=== PATIENT | female | born 1945 | race Caucasian/White ===

== ENCOUNTER 2017-08-18 00:59 | Inpatient (IN) | payer OTHER, MEDICARE ==
[~2017-08-18] VITALS: Ht 147.3 cm; Wt 63.5 kg
[2017-08-18 03:12] LABS: BASOPHIL % 1.3 % (0-2); PLATELET COUNT 231 x10^3mcL (130-400); RED CELL DISTRIBUTION WIDTH 12.6 % (11.5-14.5)
[2017-08-18 03:39] LABS: ALKALINE PHOSPHATASE 88 U/L (46-116); ALT/SGPT 14 U/L (14-59); AST/SGOT 15 U/L (15-37); BILIRUBIN TOTAL 0.1 mg/dL (0.20-1.00); CALCIUM 8.6 mg/dL (8.5-10.1); CARBON DIOXIDE 35.9 mmol/L (21-32); CHLORIDE SERUM 104 mmol/L (98-107); CREATININE SERUM 0.7 mg/dL (0.6-1.0); POTASSIUM SERUM 3.6 mmol/L (3.5-5.1); SODIUM SERUM 144 mmol/L (136-145); TOTAL PROTEIN, SERUM 7.3 g/dL (6.4-8.2)
[2017-08-18 03:40] LABS: ALBUMIN 3.3 g/dL (3.4-5.0)
[2017-08-18 03:41] LABS: GLUCOSE SERUM 48 mg/dL (74-106)
[2017-08-18] MEDS ORDERED: [UNRECOGNIZED DRUG - CODE] (05:09)
[2017-08-18] MEDS ORDERED: PAROXETINE30 M1 PO (05:09)
[2017-08-18] MEDS ORDERED: LACTULOSE10 GM/152 (05:09)
[2017-08-18] MEDS ORDERED: GAS RELIEF EXT125 MG (05:10)
[2017-08-18] MEDS ORDERED: HALOPERIDOL10 MG (05:10)
[2017-08-18] MEDS ORDERED: NOVOLIN 70/3010 ML (05:10)
[2017-08-18] MEDS ORDERED: VERAPAMIL HCL240 MG (05:10)
[2017-08-18 07:02] LABS: CHOLESTEROL/HDL RATIO 2.3; MAGNESIUM 2.3 mg/dL (1.8-2.4); PHOSPHOROUS 3.4 mg/dL (2.5-4.9)
[2017-08-18 07:14] LABS: FREE T4 0.92 ng/dL (0.76-1.46); FREE THYROXINE INDEX 2.6 ug/dL (1.4-4.5); T4(THYROXINE) 7.9 ug/dL (4.7-13.3)
[2017-08-18 07:46] LABS: T3 TOTAL 0.69 ng/mL
[2017-08-18 07:52] VITALS: BP 226/76
[2017-08-18 09:00] VITALS: BP 176/72
[2017-08-18 09:04] VITALS: BP 226/76
[2017-08-18 12:48] LABS: CARBON DIOXIDE 32.9 mmol/L (21-32); CHLORIDE SERUM 102 mmol/L (98-107); CREATININE SERUM 0.6 mg/dL (0.6-1.0); GLUCOSE SERUM 210 mg/dL (74-106); SODIUM SERUM 141 mmol/L (136-145)
[2017-08-18 12:54] LABS: POTASSIUM SERUM 2.9 mmol/L (3.5-5.1)
[2017-08-18 14:33] VITALS: BP 152/53
[2017-08-18 18:07] VITALS: BP 159/56
[2017-08-18 18:46] LABS: CALCIUM 8.2 mg/dL (8.5-10.1); CHLORIDE SERUM 106 mmol/L (98-107); CREATININE SERUM 0.7 mg/dL (0.6-1.0); GLUCOSE SERUM 118 mg/dL (74-106); POTASSIUM SERUM 3.9 mmol/L (3.5-5.1); SODIUM SERUM 141 mmol/L (136-145)
[2017-08-18 21:52] VITALS: BP 165/58
[2017-08-19 05:14] VITALS: BP 167/65
[2017-08-19 07:41] LABS: CALCIUM 8.6 mg/dL (8.5-10.1); CHLORIDE SERUM 104 mmol/L (98-107); CREATININE SERUM 0.8 mg/dL (0.6-1.0); GLUCOSE SERUM 144 mg/dL (74-106); MAGNESIUM 2.1 mg/dL (1.8-2.4); PHOSPHOROUS 2.7 mg/dL (2.5-4.9); POTASSIUM SERUM 3.6 mmol/L (3.5-5.1); SODIUM SERUM 141 mmol/L (136-145)
[2017-08-19 08:07] LABS: BASOPHIL % 0.7 % (0-2); PLATELET COUNT 222 x10^3mcL (130-400); RED CELL DISTRIBUTION WIDTH 13.2 % (11.5-14.5)
[2017-08-19 09:14] VITALS: BP 187/67
[2017-08-19 10:30] VITALS: BP 120/56
[2017-08-19 17:59] VITALS: BP 158/58
[2017-08-19 18:00] VITALS: BP 181/55
[2017-08-19 21:29] VITALS: BP 163/49
[2017-08-20] VITALS (7 sets, daily range): BP systolic 100–195; BP diastolic 34–59
[2017-08-20 06:37] LABS: BASOPHIL % 0.6 % (0-2); PLATELET COUNT 200 x10^3mcL (130-400); RED CELL DISTRIBUTION WIDTH 12.6 % (11.5-14.5)
[2017-08-20 06:56] LABS: AMYLASE 37 U/L (25-115); CALCIUM 8.2 mg/dL (8.5-10.1); CARBON DIOXIDE 29.8 mmol/L (21-32); CHLORIDE SERUM 103 mmol/L (98-107); CREATININE SERUM 0.7 mg/dL (0.6-1.0); GLUCOSE SERUM 187 mg/dL (74-106); LIPASE 79 IU/L (73-393); MAGNESIUM 1.9 mg/dL (1.8-2.4); PHOSPHOROUS 2.7 mg/dL (2.5-4.9); POTASSIUM SERUM 3.5 mmol/L (3.5-5.1); SODIUM SERUM 139 mmol/L (136-145)
[2017-08-21 05:40] VITALS: BP 156/53
[2017-08-21] MEDS ORDERED: LIPI10 PO (05:40)
[2017-08-21] MEDS ORDERED: METOPROLOL TART25 M1 PO (05:41)
[2017-08-21] MEDS ORDERED: ZES20 PO (05:41)
[2017-08-21 06:42] LABS: microscopic required? YES; urine erythrocyte NEGATIVE (NEGATIVE)
[2017-08-21 06:54] LABS: CALCIUM 8.6 mg/dL (8.5-10.1); CARBON DIOXIDE 32.5 mmol/L (21-32); CHLORIDE SERUM 102 mmol/L (98-107); CREATININE SERUM 0.9 mg/dL (0.6-1.0); GLUCOSE SERUM 189 mg/dL (74-106); MAGNESIUM 1.8 mg/dL (1.8-2.4); PHOSPHOROUS 2.4 mg/dL (2.5-4.9); POTASSIUM SERUM 3.7 mmol/L (3.5-5.1); SODIUM SERUM 140 mmol/L (136-145)
[2017-08-21 07:05] LABS: AMPHETAMINE QUAL UR NONE DETECTED (NEG <=1000)
[2017-08-21 07:27] LABS: BASOPHIL % 0.6 % (0-2); PLATELET COUNT 203 x10^3mcL (130-400); RED CELL DISTRIBUTION WIDTH 13.2 % (11.5-14.5)
[2017-08-21 08:08] VITALS: BP 198/65
[2017-08-21] MEDS ORDERED: MAC100 PO (08:32)
[2017-08-21] MEDS ORDERED: LAC PO (08:33)
[2017-08-21 09:42] VITALS: BP 169/58
[2017-08-21 10:00] VITALS: BP 169/58
[2017-08-21 14:40] VITALS: BP 102/61
== END 2017-08-21 15:49 | DRG 77 ==
LOC: ED 00:59 → DU 04:48
PROVIDERS: Emergency Medicine Emergency Medical Services; ADMIT Family Medicine Sports Medicine
DX: I67.4 Hypertensive encephalopathy (principal); K85.90 Acute pancreatitis without necrosis or infection, unspecified; E44.1 Mild protein-calorie malnutrition; E11.649 Type 2 diabetes mellitus with hypoglycemia without coma; E11.65 Type 2 diabetes mellitus with hyperglycemia; E87.6 Hypokalemia; I11.9 Hypertensive heart disease without heart failure; I08.0 Rheumatic disorders of both mitral and aortic valves; F03.90 Unspecified dementia, unspecified severity, without behavioral disturbance, psychotic disturbance, mood disturbance, and anxiety; E11.51 Type 2 diabetes mellitus with diabetic peripheral angiopathy without gangrene; K75.81 Nonalcoholic steatohepatitis (NASH); E78.5 Hyperlipidemia, unspecified; E66.3 Overweight; Z68.29 Body mass index [BMI] 29.0-29.9, adult; Z79.4 Long term (current) use of insulin; Z87.891 Personal history of nicotine dependence; Z86.73 Personal history of transient ischemic attack (TIA), and cerebral infarction without residual deficits
CPT/HCPCS: 82962; 83880; 84439; 90658; 90732; 92610-GN; J0360; J1644; J2405; J3480; J3490; J7030; J7070; Q0092

== ENCOUNTER 2017-08-22 17:04 | Inpatient (IN) | payer OTHER, MEDICARE ==
[~2017-08-22] VITALS: Ht 147.3 cm; Wt 58.3 kg
[~2017-08-22 17:04] MED LIST: GAS RELIEF EXT125 MG; HALOPERIDOL10 MG; LAC PO; LACTULOSE10 GM/152; LIPI10 PO; MAC100 PO; METOPROLOL TART25 M1 PO; NOVOLIN 70/3010 ML; PAROXETINE30 M1 PO; VERAPAMIL HCL240 MG; ZES20 PO; [UNRECOGNIZED DRUG - CODE]
[2017-08-22 18:57] LABS: BASOPHIL % 0.2 % (0-2); PLATELET COUNT 223 x10^3mcL (130-400); RED CELL DISTRIBUTION WIDTH 13.6 % (11.5-14.5)
[2017-08-22 19:04] LABS: CALCIUM 8.6 mg/dL (8.5-10.1); CARBON DIOXIDE 32.4 mmol/L (21-32); CHLORIDE SERUM 101 mmol/L (98-107); CREATININE SERUM 0.9 mg/dL (0.6-1.0); GLUCOSE SERUM 92 mg/dL (74-106); POTASSIUM SERUM 3.4 mmol/L (3.5-5.1); SODIUM SERUM 140 mmol/L (136-145)
[2017-08-22 19:08] LABS: ALBUMIN 3.4 g/dL (3.4-5.0); ALKALINE PHOSPHATASE 93 U/L (46-116); ALT/SGPT 19 U/L (14-59); AST/SGOT 25 U/L (15-37); BILIRUBIN TOTAL 0.2 mg/dL (0.20-1.00); TOTAL PROTEIN, SERUM 7.8 g/dL (6.4-8.2)
[2017-08-22 19:09] LABS: CHOLESTEROL 201 mg/dL (<200); HDL CHOLESTEROL 89 mg/dL (40-60)
[2017-08-22 19:45] LABS: microscopic required? YES; urine erythrocyte NEGATIVE (NEGATIVE)
[2017-08-22 22:06] VITALS: BP 169/50
[2017-08-22 23:48] LABS: PHOSPHOROUS 3.6 mg/dL (2.5-4.9)
[2017-08-22 23:49] LABS: CHOLESTEROL/HDL RATIO 2.3
[2017-08-23 00:36] LABS: FREE T4 1.09 ng/dL (0.76-1.46); FREE THYROXINE INDEX 3.1 ug/dL (1.4-4.5); T4(THYROXINE) 9.3 ug/dL (4.7-13.3)
[2017-08-23 02:55] LABS: T3 TOTAL 0.73 ng/mL
[2017-08-23 05:26] VITALS: BP 138/57
[2017-08-23 06:39] LABS: BASOPHIL % 0.6 % (0-2); PLATELET COUNT 184 x10^3mcL (130-400)
[2017-08-23 06:45] LABS: CALCIUM 8.3 mg/dL (8.5-10.1); CHLORIDE SERUM 105 mmol/L (98-107); CREATININE SERUM 0.8 mg/dL (0.6-1.0); GLUCOSE SERUM 89 mg/dL (74-106); MAGNESIUM 1.9 mg/dL (1.8-2.4); PHOSPHOROUS 2.9 mg/dL (2.5-4.9); POTASSIUM SERUM 3.1 mmol/L (3.5-5.1); SODIUM SERUM 141 mmol/L (136-145)
[2017-08-23 10:05] VITALS: BP 126/54
[2017-08-23 13:35] VITALS: BP 91/34
[2017-08-23 21:43] VITALS: BP 151/48
[2017-08-24 06:48] VITALS: BP 186/56
[2017-08-24 07:03] LABS: BASOPHIL % 0.5 % (0-2); PLATELET COUNT 204 x10^3mcL (130-400); RED CELL DISTRIBUTION WIDTH 13.4 % (11.5-14.5)
[2017-08-24 07:49] LABS: CALCIUM 8.6 mg/dL (8.5-10.1); CHLORIDE SERUM 101 mmol/L (98-107); CREATININE SERUM 0.8 mg/dL (0.6-1.0); GLUCOSE SERUM 211 mg/dL (74-106); MAGNESIUM 1.8 mg/dL (1.8-2.4); POTASSIUM SERUM 3.5 mmol/L (3.5-5.1); SODIUM SERUM 139 mmol/L (136-145)
[2017-08-24 09:10] VITALS: BP 189/61
[2017-08-24 13:24] VITALS: BP 103/43
[2017-08-24 16:44] VITALS: BP 139/47
[2017-08-24 21:36] VITALS: BP 167/53
[2017-08-25] VITALS (8 sets, daily range): BP systolic 113–162; BP diastolic 41–55; Ht 147.3 cm; Wt 58.3 kg
[2017-08-25 06:26] LABS: CALCIUM 8.7 mg/dL (8.5-10.1); CARBON DIOXIDE 32.3 mmol/L (21-32); CHLORIDE SERUM 101 mmol/L (98-107); GLUCOSE SERUM 204 mg/dL (74-106); MAGNESIUM 1.6 mg/dL (1.8-2.4); PHOSPHOROUS 2.6 mg/dL (2.5-4.9); SODIUM SERUM 140 mmol/L (136-145)
[2017-08-25 06:36] LABS: BASOPHIL % 0.6 % (0-2); PLATELET COUNT 197 x10^3mcL (130-400); RED CELL DISTRIBUTION WIDTH 13.2 % (11.5-14.5)
[2017-08-25] MEDS ORDERED: BACTRIM DS1 TAB PO (10:34)
[2017-08-25] MEDS ORDERED: LAC PO (10:46)
[2017-08-25] MEDS ORDERED: METOPROLOL TART25 M1 PO (17:36)
[2017-08-26 01:04] VITALS: BP 164/44
[2017-08-26 05:55] VITALS: BP 110/61
[2017-08-26 09:36] VITALS: BP 175/67
[2017-08-26 11:30] VITALS: BP 173/60
[2017-08-26 13:48] VITALS: BP 186/56
[2017-08-26 14:54] VITALS: BP 152/49
== END 2017-08-26 16:37 | DRG 689 ==
LOC: ED 17:04 → DU 21:20
PROVIDERS: Emergency Medicine; Family Medicine Sports Medicine; ADMIT Student in an Organized Health Care Education/Training Program
DX: N39.0 Urinary tract infection, site not specified (principal); G93.41 Metabolic encephalopathy; I50.43 Acute on chronic combined systolic (congestive) and diastolic (congestive) heart failure; E44.1 Mild protein-calorie malnutrition; D68.69 Other thrombophilia; K56.7 Ileus, unspecified; I42.2 Other hypertrophic cardiomyopathy; E11.649 Type 2 diabetes mellitus with hypoglycemia without coma; E11.51 Type 2 diabetes mellitus with diabetic peripheral angiopathy without gangrene; E11.65 Type 2 diabetes mellitus with hyperglycemia; E87.6 Hypokalemia; E78.00 Pure hypercholesterolemia, unspecified; G30.8 Other Alzheimer's disease; F02.80 Dementia in other diseases classified elsewhere, unspecified severity, without behavioral disturbance, psychotic disturbance, mood disturbance, and anxiety; I11.0 Hypertensive heart disease with heart failure; H11.9 Unspecified disorder of conjunctiva; E83.51 Hypocalcemia; E83.39 Other disorders of phosphorus metabolism; I35.1 Nonrheumatic aortic (valve) insufficiency; I34.0 Nonrheumatic mitral (valve) insufficiency; I37.1 Nonrheumatic pulmonary valve insufficiency; I16.0 Hypertensive urgency; Z68.26 Body mass index [BMI] 26.0-26.9, adult; Z74.01 Bed confinement status; Z79.4 Long term (current) use of insulin; Z86.73 Personal history of transient ischemic attack (TIA), and cerebral infarction without residual deficits
CPT/HCPCS: 82962; 83880; 84439; J0696; J1644; J1815; J3475; J3480; J3490; J7030; J7040; J7042; J7060; J7070; Q0092

== ENCOUNTER 2017-09-13 10:24 | Inpatient (IN) | payer OTHER, MEDICARE ==
[~2017-09-13] VITALS: Ht 152.4 cm; Wt 45.9 kg
[~2017-09-13 10:24] MED LIST changes: +BACTRIM DS1 TAB PO
--- NOTE | 2017-09-13 10:30 | NUR ---
PT BIB AMBULANCE, PT HAS A HX OF DEMENTIA AND FAMILY CALLED 911 FOR INCREASED ALOC TODAY. PT UNABLE TO SPEAK UPON ARRIVAL, WITHDRAWS TO PAIN, AND UNABLE TO FOLLOW COMMANDS. PER MEDIC, FAMILY STATES THAT PT IS MORE ALTERED FOR SELF THAN USUAL. PT ARRIVED WITH BS READING >600 X2. PT PLACED ON CM, EKG DONE. PER MEDIC, PT IS ON HOSPICE AND DNR, UNABLE TO OBTAIN DNR FROM FACILITY AT THIS TIME. NO FAMILY AT BEDSIDE. PT AWAITING MD PUGA.
--- NOTE | 2017-09-13 10:32 | NUR ---
MSE COMPLETED BY DR PASCUAL.
--- NOTE | 2017-09-13 10:43 | NUR ---
XRAY AT BEDSIDE
--- NOTE | 2017-09-13 10:48 | NUR ---
LAB AT BEDSIDE FOR BLOOD DRAW
[2017-09-13] MEDS ORDERED: LAC PO (11:22)
[2017-09-13 11:37] LABS: BASOPHIL % 0.1 % (0-2); PLATELET COUNT 276 x10^3mcL (130-400); RED CELL DISTRIBUTION WIDTH 13.6 % (11.5-14.5)
--- NOTE | 2017-09-13 11:42 | NUR ---
PT TO CT SCAN VIA [facility]
--- NOTE | 2017-09-13 11:42 | NUR ---
SPOKE TO MERY FROM [facility]
[2017-09-13 11:46] LABS: ALBUMIN 4.7 g/dL (3.4-5.0); ALKALINE PHOSPHATASE 156 U/L (46-116); ALT/SGPT 16 U/L (14-59); AST/SGOT 9 U/L (15-37); BILIRUBIN TOTAL 0.9 mg/dL (0.20-1.00); CALCIUM 9.7 mg/dL (8.5-10.1); CARBON DIOXIDE 18.5 mmol/L (21-32); CHLORIDE SERUM 89 mmol/L (98-107); CREATININE SERUM 2.7 mg/dL (0.6-1.0); POTASSIUM SERUM 4.8 mmol/L (3.5-5.1); SODIUM SERUM 134 mmol/L (136-145)
--- NOTE | 2017-09-13 11:54 | NUR ---
PT RETURNED FROM CT, DR PASCUAL AT BEDSIDE FOR FURTHER EVALUATION.
[2017-09-13] MEDS ORDERED: LACTULOSE10 GM/152 PO (11:59)
--- NOTE | 2017-09-13 12:02 | NUR ---
FAMILY AT BEDSIDE
[2017-09-13] MEDS ORDERED: LOVASTATIN20 MG PO (12:03)
[2017-09-13 12:04] LABS: CHOLESTEROL 243 mg/dL (<200); TOTAL PROTEIN, SERUM 9.2 g/dL (6.4-8.2)
[2017-09-13] MEDS ORDERED: METFORMIN500 M1 PO (12:07)
[2017-09-13 12:08] LABS: GLUCOSE SERUM 782 mg/dL (74-106)
[2017-09-13] MEDS ORDERED: LAXATIVE5 M1 PR (12:11)
[2017-09-13] MEDS ORDERED: LORAZEPAM0.5 MG PO (12:13)
[2017-09-13] MEDS ORDERED: HALOPERIDOL L2 MG/ML SL (12:13)
[2017-09-13] MEDS ORDERED: PROCHLORPERAZIN10 MG PO (12:15)
[2017-09-13] MEDS ORDERED: MAPAP500 M3 PO (12:16)
--- NOTE | 2017-09-13 12:16 | NUR ---
DR PASCUAL AT BEDSIDE SPEAKING TO FAMILY ABOUT PLAN OF CARE.
[2017-09-13 13:13] LABS: AMPHETAMINE QUAL UR NONE DETECTED (NEG <=1000)
--- NOTE | 2017-09-13 13:14 | NUR ---
INSULIN ADMINISTERED PER MD ORDER. 20 UNITS OF REGULAR INSULIN GIVEN IV PUSH FOR BLOOD SUGAR OF 782. REGULAR INSULIN DRIP INFUSING AT 5 UNITS / HOUR. DOSES CHECKED AND CONFIRMED BY MYSELF AND NAYELI CORDOVA. FAMILY EDUCATED ON MEDICATION REGIMEN AND AGREED TO PLAN OF CARE.
[2017-09-13 13:36] LABS: microscopic required? YES; urine erythrocyte 2+ (NEGATIVE)
--- NOTE | 2017-09-13 13:44 | NUR ---
MEDICATION ADMINSTERED PER MD ORDER. PT REMAINS ON CM AND IN VIEW OF NURSES STATION. WILL CONTINUE TO MONITOR FOR ADVERSE REACTIONS.
[2017-09-13 14:04] LABS: FREE T4 1.09 ng/dL (0.76-1.46); T3 TOTAL 0.33 ng/mL; T4(THYROXINE) 8.5 ug/dL (4.7-13.3)
--- NOTE | 2017-09-13 14:14 | NUR ---
PTS BLOOD SUGAR RECHECK >600 X2, DR PASCUAL INFORMED PTS INSULIN DRIP INCREASED TO 7 UNITS PER HOUR PER ORDERS.
--- NOTE | 2017-09-13 14:32 | NUR ---
REPORT RECEIVED AT THIS TIME FROM ER NURSE, VINNIE. ALL QUESTIONS ANSWERED, ALL CONCERNS ADDRESSED.
--- NOTE | 2017-09-13 14:38 | NUR ---
REPORT CALLED TO BRIONNA IN ICU
[2017-09-13] MEDS ORDERED: METOPROLOL TART25 M1 PO (14:44)
--- NOTE | 2017-09-13 14:50 | NUR ---
PT ARRIVED TO UNIT AT THIS TIME ACCOMPANIED BY ED NURSE. PT ON INSULIN DRIP AT 7U/HR. 3RD LITER BOLUD INFUSING AT THIS TIME. WILL ASSESS AND ADDRESS NEEDS NEEDED.
--- NOTE | 2017-09-13 15:05 | NUR ---
PT'S BLOOD SUGAR AT THIS TIME 466. PT ON INSULIN DRIP.
--- NOTE | 2017-09-13 15:10 | NUR ---
PT'S INSULIN CURRENTLY AT 7U/HR, PER PROTOCOL, PT IS TO HAVE 4.59U/HR. PER DR ANISH JARRELL TO ROUND TO 5U/HR. PT RECEIVED INSULIN BOLUS IN ED. NOT TO RECEIVE SECONDARY.
--- NOTE | 2017-09-13 15:15 | NUR ---
DR OCONNELL AT BEDSIDE AT THIS TIME DISCUSSING CODE STATUS WITH FAMILY. PT IS TO BE MADE FULL DNR
[2017-09-13 15:52] LABS: CHOLESTEROL/HDL RATIO 3.3; MAGNESIUM 2.8 mg/dL (1.8-2.4)
--- NOTE | 2017-09-13 15:55 | NUR ---
RESTRAINTS PLACED AT THIS TIME. PT HAS SUN DOWNERS PER FAMILY. PT ATTEMPTING TO PULL ON LINES. EDUCATION PROVIDED. FAMILY AGREED.
[2017-09-13 16:02] VITALS: BP 133/48
[2017-09-13 16:03] LABS: CALCIUM 7.8 mg/dL (8.5-10.1); CARBON DIOXIDE 15.5 mmol/L (21-32); CHLORIDE SERUM 106 mmol/L (98-107); CREATININE SERUM 2.2 mg/dL (0.6-1.0); SODIUM SERUM 142 mmol/L (136-145)
[2017-09-13 16:38] LABS: GLUCOSE SERUM 519 mg/dL (74-106)
--- NOTE | 2017-09-13 16:39 | NUR ---
DR. OCONNELL AWARE OF GLUCOSE 519 FROM LAB. NO FURTHER ORDERS AT THIS TIME.
[2017-09-13 17:52] LABS: MAGNESIUM 2.3 mg/dL (1.8-2.4); PHOSPHOROUS 3.2 mg/dL (2.5-4.9)
--- NOTE | 2017-09-13 19:00 | NUR ---
DR WEEKS CALLED AND NOTIFIED THAT BLOOD SUGAR LESS THAN 200, CURRENTLY 151. ORDERS RECEIVED TO CHANGE INSULIN RATE TO 0.05U/KG/HR AND WILL RECEIVE ORDER FOR CHANGE OF FLUIDS
--- NOTE | 2017-09-13 19:05 | NUR ---
REPORT GIVEN TO NOC RN AT BEDSIDE. ALL QUESTIONS ANSWERED, ALL CONCERNS ADDRESSED.
--- NOTE | 2017-09-13 19:19 | NUR ---
RECEIVED PATIENT IN BED SLEEPING WITH NO SIGN OF ACUTE DISTRESS NOTED. RESPIRATION EVEN AND NONLABOR ON O2 AT 2L VIA NC SATTING AT 100%. SOFT WRIST RESTRAINTS IN PALCE WITH GOO CIRCULATION TO BLE. JONES TO GRAVITY WITH WITH SMALL AMOUNT OF YELLOW OUTPUT, EMPTIED BY AM SHIFT. NS INFUSING AT 200ML/HR AND REGULAR INSULIN DRIP AT 2.3ML/HR. K RIDER ALSO INFUSING THIS TIME WITH CENTRAL LINE TO RIJ. WILL CONTINUE TO MONITOR.
[2017-09-13 19:51] LABS: CALCIUM 7.8 mg/dL (8.5-10.1); CARBON DIOXIDE 29.2 mmol/L (21-32); CHLORIDE SERUM 114 mmol/L (98-107); CREATININE SERUM 1.8 mg/dL (0.6-1.0); GLUCOSE SERUM 173 mg/dL (74-106); POTASSIUM SERUM 3.2 mmol/L (3.5-5.1); SODIUM SERUM 148 mmol/L (136-145)
--- NOTE | 2017-09-13 19:52 | NUR ---
IV FLUIDS CHANGED TO D5NS AT 150ML/HR ORDERED.
[2017-09-13 20:32] LABS: MAGNESIUM 2.2 mg/dL (1.8-2.4)
[2017-09-13 20:59] VITALS: BP 122/48
--- NOTE | 2017-09-13 22:19 | NUR ---
IV CHANGED TO D51/[address] WEEKS, PATIENT SNORING WITH NO DISTRESS NOTED.
[2017-09-13 23:24] VITALS: BP 134/57
--- NOTE | 2017-09-13 23:48 | NUR ---
RT AT BEDSIDE FOR EKG, COUNTERSINKER AT BEDSIDE TOO THIS TIME FOR LAB WORKS.
[2017-09-14 00:18] LABS: CALCIUM 7.5 mg/dL (8.5-10.1); CARBON DIOXIDE 27.4 mmol/L (21-32); CHLORIDE SERUM 114 mmol/L (98-107); CREATININE SERUM 1.6 mg/dL (0.6-1.0); GLUCOSE SERUM 217 mg/dL (74-106); POTASSIUM SERUM 4.2 mmol/L (3.5-5.1); SODIUM SERUM 147 mmol/L (136-145)
[2017-09-14 03:41] LABS: BASOPHIL % 0.5 % (0-2); PLATELET COUNT 173 x10^3mcL (130-400); RED CELL DISTRIBUTION WIDTH 13.5 % (11.5-14.5)
[2017-09-14 03:59] LABS: CALCIUM 7.8 mg/dL (8.5-10.1); CARBON DIOXIDE 27.3 mmol/L (21-32); CHLORIDE SERUM 115 mmol/L (98-107); CREATININE SERUM 1.4 mg/dL (0.6-1.0); GLUCOSE SERUM 198 mg/dL (74-106); MAGNESIUM 2.1 mg/dL (1.8-2.4); PHOSPHOROUS 1.2 mg/dL (2.5-4.9); POTASSIUM SERUM 3.7 mmol/L (3.5-5.1); SODIUM SERUM 146 mmol/L (136-145)
[2017-09-14 04:05] VITALS: BP 136/44
--- NOTE | 2017-09-14 04:25 | NUR ---
DR WEEKS MADE AWARE OF PATIENT PHOS-1,2 AND WBC-16.1.
--- NOTE | 2017-09-14 05:18 | NUR ---
CHECKED AT INTERVALS FOR NEEDS AND COMFORT. NO SIGN OF DISTRESS NOTED THE ENTIRE SHIFT. ALL NEEDS ATTENDED.
[2017-09-14 07:22] LABS: MAGNESIUM 2.2 mg/dL (1.8-2.4); PHOSPHOROUS 1.5 mg/dL (2.5-4.9)
[2017-09-14 07:33] VITALS: Ht 152.4 cm; Wt 45.9 kg
[2017-09-14 08:05] VITALS: BP 132/49
--- NOTE | 2017-09-14 09:47 | NUR ---
ATTEMPTED TO GIVE MORNING MEDICATION ASPIRIN, BUT PATIENT IS UNABLE TO WAKE UP ENOUGH. HIGH RISK FOR ASPIRATION. DR. AGUILLON MADE AWARE. 14 LUXEMBOURGISH NASOGASTRIC TUBE INSERTED TO RIGHT NARE AND VERIFIED AIR BOLUS BU AUSCULTATION. KUB ORDERED TO CONFIRM PLACEMENT. PATIENT TOLERATED WELL. WILL CONTINUE TO MONITOR.
--- NOTE | 2017-09-14 09:48 | NUR ---
RADIOLOGY AT BEDSIDE FOR KUB TO CONFIRM NGT. WILL CONTINUE TO MONITOR.
[2017-09-14 11:06] VITALS: BP 146/74
--- NOTE | 2017-09-14 13:28 | NUR ---
SPOKE WITH PATIENT'S SON AND [id number]. FAMILY IS OKAY WITH TUBE FEEDINGS VIA NGT BUT NOT OKAY WITH PEG PLACEMENT. WILL NOTIFY RESIDENT AND CONTINUE TO MONITOR.
--- NOTE | 2017-09-14 13:54 | NUR ---
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 Labs:09/14: Na:146H, BH, BUN:45H, Cr:1.4H, Ca:7.8L, Phos:1.2L, WBC:16.1H, H/H:11.2/35L(09/13) TH, Chol:243H, LDL:126H, HDL:72H, A1c:8.6H, Trop:0.423, 0.432 Meds:Colace, D5 NS, Humulin, Lactulose, Levemir, Neutra-phos, Theragran, Zofran Diet:NPO secondary to DKA protocol PO Intake:N/A due to current NPO status Ht:60in, 5 ft Wt: 101#, 45.92kg BMI: 19.8kg/m2 (normal) IBW:100#, 45kg %IBW:101% UBW:unable to obtain Age:72 y/o female Food Allergies:unable to obtain Skin:intact Dayday: 12 Edema:None GI:bowel sounds active; NGT clamped Last BM: none recorded Nursing Trigger: Appears underweight/ malnourished, unable to ingest diet for age Pt admitted with Metabolic encephalopathy secondary to diabetic ketoacidosis, elevated troponin, ACSDHF, BNP:501 and hisotry of CVA with dysphagia, per H&P. Per progress note 09/13, gap closed x3, pt is lethargic at night and on 0.05ml/hr inuslin drip. Per bed huddle this morning, pt's DKA is resolved and is stable to be transferred upstairs to [facility]. Per RN note, pt is unable to wake up to receive medications so NGT was inserted. Pt was with family and ICU director during RD visit. Spoke to RN who reports pt's family is okay with TF through NGT but they do want a PEG. Problem with: N: No V: No D: No C:No Problems with: Chewing+ Swallowing: pt with hx of dysphagia s/p CVA Current appetite: N/A due to current NPO status Recent wt change:unable to obtain %wt change:N/A Vitamin/Supplement use:None per H&P Special diet at home:Diabetic per admission assessment Physical activity:non-ambulatory Education: not appropriate at this time due to pt lethargic. Estimated Nutritional Needs Based on actual body weight 46kg Energy: 1150-1380kcal/d (25-30kcal/kg for geriatric maintenance) Protein:46-55g/d (1-1.2g/kg for repletion) Fluid:2113-5758 ml/d (25-30ml/kg for maintenance) or per doctor Nutrition Diagnosis 1. Altered nutrition labs related to endocrine dysfunction as evidenced by pt with DKA, elevated B and A1c:8.6. Intervention 1. Recommend TF Diabetisource at 20ml/hr, increase 10ml q4hr to goal 40ml/hr, free water flush 100ml q4hr. This provides 1152kcal, 58g pro and 1385ml free water daily. This meets 83% caloric needs and 105% protein needs. Monitor/Evaluate Goal:NPO <5-7days, diet advancement Monitor: NPO status, diet advancement, Labs (BG), GI function F/U in 2-3 days as high risk:09/16-2
--- NOTE | 2017-09-14 15:07 | NUR ---
REPORT GIVEN TO NAYELI LEE TO ASSUME ALL CARES UPON TRANSFER. ALL QUESTIONS AND CONCERNS ADDRESSED. WILL TRANSFER SHORTLY VIA BED ATTACHED TO ENVIRONMENTAL HEALTH AIDE ACCOMPANIED BY NURSE.
[2017-09-14 15:40] VITALS: BP 154/53
--- NOTE | 2017-09-14 15:40 | NUR ---
RECEIVED PATIENT FROM ICU VIA BED, LETHARGIC EYES CLOSED; MOVES ALL EXTREMITIES. RIJ X 3 PORTS INTACT AND SALINE LOCK NOTED. RT NARE NGT CLAMPED AND INTACT. JONES INTACT AND GRAVITY DRAIN YELLOW URINE NOTED. BILAT SOFT WRIST RESTRAINT IN PLACE; PATIENT TEMPTED TO PULL NGT. ORDER IN THE CHART. SEE RESTRAINT FLOW SHEET. CALL LIGHT WITHIN REACH.
--- NOTE | 2017-09-14 16:00 | NUR ---
TELE BOX # 17 SB 58 ON THE MONITOR NOTED.
--- NOTE | 2017-09-14 16:52 | NUR ---
PATIENT RESTING IN BED EYES CLOSED, SNORING NOTED, BS 168 GIVE 3 UNITS HUMULIN R SQ AND IVF D51/2NS @ 150ML/HR STARTED ORDERED. CALL KITCHEN FOR TUBE FEEDING FORMULA. BILAT RESTRAINT IN PLACE, JONES IN PLACE W/ YELLOW URINE. CALL LIGHT WITHIN REACH.
--- NOTE | 2017-09-14 18:32 | NUR ---
PATIENT RESTING COMFORTABLE NO DISTRESS NOTED, FAMILY MEMBERS AT BEDSIDE. INFORM DTR WAITING FOR FEEDING PUMP; CALL MORENA FOR FEEDING PUMP. CONT TO MONITOR.
--- NOTE | 2017-09-14 19:02 | NUR ---
PATIENT RESTING RESTING COMFORTABLE, EYES CLOSED, SOFT WRIST RESTRAINT IN PLACE, PATIENT OCCAS TRY TO PULL NGT; START DIABETASOURCE AT 10ML/HR AND FLUSH 100ML Q4H ORDERED. CHECK RESIDUAL 0. TUBE FEDDING STARTED. FAMILY MEMBERS REMAIN AT BEDSIDE. CARE ENDORSE TO ON-COMING NURSE.
--- NOTE | 2017-09-14 20:00 | NUR ---
PATIENT RECEIVED IN BED NON VERBAL, DOES MOAN WITH TACTILE STIMULI,LETHARGIC PER FAMILY AND PER REPORT. BREATHING EVEN AND UNLABORED BS DIMINISHED BASES, FOUND ON 2LNC SAT 99%. NO INDICATION OF CHEST PAINS, TELE#17 NSR-SB ON THE MONITOR, HR=62BPM, RHYTHM REGULAR. RT NARES NGTUBE NOTED, RECEIVING FEEDING OF DM SOURCE AT 10 ML/HR, CHECKED RESIDUAL NONE, KEEP HOB AT 30- DEGRESS ANGLE, TAPE SECURED. JONES CATHETER INTACT DRAINING YELLOW UA, STATLOCK APPLIED TO RT ANTERIOR THIGH, NO DEPENDENT LOOPS NOTED, JONES BAG OFF THE FLOOR. SKIN IS INTACT, RT IJ TRIPLE LUMEN CATH INTACT,PATENT. MAX WITH ADL'S, GENERALIZED WEAKNESS, TURNED TO RT SIDE, BILAT SOFT WRIST RESTRAINT IN USE TO PREVENT PATIENT FROM PULLING LINES AND TUBESM CIRCULATION CHECKED, SCD'S TO BLE IN USE AND INFORMED FAMILY ABOUT ITS PURPOSE AND IMPORTANCE BEING FOR DVT PROPHYLAXIS. NO S/S OF DISCOMFORTS NOR PAIN. SAFETY/FALL PRECAUTIONS MAINTAINED. WILL CONTINUE TO MONITOR.
[2017-09-14 20:10] VITALS: BP 160/56
--- NOTE | 2017-09-14 22:00 | NUR ---
PATIENT TURNED AND REPOSITIONED, KEPT HOB ELEVATED, NOTED TO SLIDE DOWN IN BED, RESTRAINT RECHECKED AND SECURED PROPERLY, CIRCULATION MAINTAINED. FLUSHED UNUSED CENTRAL PORTS (2), GOOD BLOOD RETURNED AND FLUSHED WELL NO RESISTANCE. MOANS WHEN TURNED, REMAINED NON VERBAL AND LETHARGIC. SAFETY/FALL PRECAUTIONS MAINTAINED. WILL CONTINUE TO MONITOR.
[2017-09-14 23:00] VITALS: BP 126/48
--- NOTE | 2017-09-14 23:00 | NUR ---
INCREASED TUBE FEEDING BY 10 ML,TOTAL NOW IS 20ML/HR. PATIENT TURNED THIS TIME, KEPT HOB ELEVATED.
--- NOTE | 2017-09-14 23:11 | NUR ---
DR ROBERTO MADE AWARE ABOUT RESULT OF KUB POST NGTUBE PLACEMENT RESULT.
--- NOTE | 2017-09-15 00:30 | NUR ---
ROUNDS MADE PATIENT RSTING COMFORTABLY THIS TIME, CALM, TURNED AND REPOSITIONED, LINE REMAINED INTACT.NGTUBE FEEDING AT 20ML/HR NOW. SB, HR=59BPM ON THE MONITOR. SAFTY/FALL PRECAUTION MAINTAINED.REMAINED RESTRAINT ( BILAT. SOFT WRIST), TO PREVENT PATIENT FROM PULLING TUBES AND LINES. NO S/S OF DISCOMFORTS NOR PAIN. HOB REMAINED ELEVATED. WILL CONTINUE TO MONITOR.
--- NOTE | 2017-09-15 02:56 | NUR ---
PATIENT RESTING WITH EYES CLOSED, WHEN NAME CALLED OPEN EYES BRIEFLY,NO VERBALIZATION, TURNED AND REPOSITIONED THIS TIME,KEEPING HOB ELEVATED. RESTRAINT MAINTAINED TO PREVENT PATIENT FROM PULLING LINES AND TUBES, CIRC CHECKED. SAFETY/FALL PRECAUTIONS MAINTAINED. WILL CONTINUE TO MONITOR.
--- NOTE | 2017-09-15 03:30 | NUR ---
CHECKED NGTUBE RESIDUAL NONE, INCREASED RATE BY 10ML,TOTAL NOW AT 30 ML/HR. KEPT HOB ELEVATED.PER HEALTH PLAN SPECIALIST, PATIENT BEEN OPENING EYES BRIEFLY AND VERBALIZING WORDS THAT ARE INCOMPREHENSIBLE.
--- NOTE | 2017-09-15 05:24 | NUR ---
TURNED AND REPOSITIONED THIS TIME,KEPT HOB ELEVATED, ORAL CARE RENDERED AND JONES CATHETER CARE RENDERED. WILL CONTINUE TO MONITOR.
[2017-09-15 05:47] VITALS: BP 147/40
--- NOTE | 2017-09-15 05:58 | NUR ---
PATIENT RESTED WELL AND HAD A COMFORTABLE NIGHT, WAS TURNED AND REPOSITIONED AND ELEVCATED HOB, NO NGTUBE RESIDUAL DURING THE SHIFT, TOLERATING TUBE FEEDING. WILL INCREASE RATE TO 40 ( GOAL) AT 0700. NO HYPOGLYCEMIA NOR HYPERGLYCEMIA EPISODE DURING THE SHIFT.BILAT WRIST SOFT RESTRAINT MAINTAINED, CIRC CHECKED Q 2HRS. NGT INTACT, TAPE SECURED. ORAL CARE RENDERED. SAFETY/FALL PRECAUTION MAINTAINED. WILL ENDORSE CONTINUITY OF CARE TO INCOMING NURSE.
--- NOTE | 2017-09-15 06:47 | NUR ---
INCREASED NGTUBE FEEDING AT 40 ML/HR GOAL.
--- NOTE | 2017-09-15 07:10 | NUR ---
RECEIVED PATIENT OPEN EYES TO VERBAL; NO DISTRESS NOTED, BILAT SOFT WRIST RESTRAINT IN PLACE, CIRCULATION AND ROM CHECK. IV INTACT AND INFUSING WELL TO RIJ; RT NARE NGT WITH FEEDING AT 40ML/HR. HOB AT 45 DEGREE NOTED, SITTER REMAIN AT BEDSIDE. CONT TO MONITOR.
--- NOTE | 2017-09-15 07:13 | NUR ---
BEDSIDE REPORT AND INTRODUCTION PERFORMED WITH INCOMING NURSE HOLLY.
[2017-09-15 07:17] LABS: CALCIUM 7.5 mg/dL (8.5-10.1); CARBON DIOXIDE 31.5 mmol/L (21-32); CHLORIDE SERUM 105 mmol/L (98-107); CREATININE SERUM 0.8 mg/dL (0.6-1.0); GLUCOSE SERUM 218 mg/dL (74-106); MAGNESIUM 1.8 mg/dL (1.8-2.4); PHOSPHOROUS 1.6 mg/dL (2.5-4.9); POTASSIUM SERUM 3.3 mmol/L (3.5-5.1); SODIUM SERUM 139 mmol/L (136-145)
[2017-09-15 08:18] LABS: BASOPHIL % 0.3 % (0-2); PLATELET COUNT 139 x10^3mcL (130-400); RED CELL DISTRIBUTION WIDTH 13.8 % (11.5-14.5)
[2017-09-15 10:00] VITALS: BP 140/45; BP 169/43
--- NOTE | 2017-09-15 10:15 | NUR ---
REPOSITION UP IN BED, ERYN CARE PROVIDED BY BRUSH PAINTER AT THIS TIME, NO DISTRESS NOTED. PATIENT MOANS WITH TACTILE STIMULI; NGT RESIDUAL CHECKED 0ML; ALL DUE MEDS GIVEN AND FLUSH W/ 60ML WATER; CONT TUBE FEEDING @ 40ML/HR. RIJ INTACT AND INFUSING WELL. SOFT WRIST RESTRAINT IN PLACE, CIRCULATION CHECKED. CONT TO MONITOR.
--- NOTE | 2017-09-15 10:54 | NUR ---
DR. SELBY ON-CALL FOR DR. SANTOS WAS INFORM K 3.3 AND PATIENT'S SON MORGAN WOULD LIKE UPDATE ON PATIENT'S CONDITION.
--- NOTE | 2017-09-15 11:52 | NUR ---
PATIENT RESTING IN BED COMFORTABLE, OCCAS OPEN EYES. BS 269 GIVE 9 UNITS HUMULIN R SQ; KCL 20MEQ VIA NGT GIVEN FOR K 3.3 ORDERED AND FLUSH 60ML WATER. REPOSITION TO RT SIDE; SOFT WRIST RESTRAINT IN PLACE, CIRCULATION CHECKED. CONT TO MONITOR.
[2017-09-15 12:57] VITALS: BP 157/53
--- NOTE | 2017-09-15 13:09 | NUR ---
PER HI SS UNABLE TO DISCHARGE PATIENT BACK TO [place] ON NGT FEEDING; [facility] WILL COME TO EVAL PATIENT.
--- NOTE | 2017-09-15 15:25 | NUR ---
PATIENT RESTING EYES CLOSED, REPLACE NEW BAG IVF NS @ 100ML/HR ORDER BY DR. SANTOS. DUE MEDS GIVEN VIA NGT AND RESIDUAL 1ML; FLUSH 60ML WATER. DRAW BLOOD FROM [facility] FOR AMMONIA, CBC, AND CHEM. FLUSH WELL NS 10ML; CONT IVF ORDERED. SOFT WRIST RESTRAINT IN PLACE, CIRCULATION CHECKED. CALL LIGHT WITHIN REACH.
[2017-09-15 16:15] LABS: ALBUMIN 2.4 g/dL (3.4-5.0); CALCIUM 7.6 mg/dL (8.5-10.1); CHLORIDE SERUM 103 mmol/L (98-107); CREATININE SERUM 0.7 mg/dL (0.6-1.0); GLUCOSE SERUM 178 mg/dL (74-106); POTASSIUM SERUM 3.6 mmol/L (3.5-5.1); SODIUM SERUM 140 mmol/L (136-145)
--- NOTE | 2017-09-15 17:16 | NUR ---
PATIENT AWAKE IN BED ANSWER SIMPLE QUESTIONS, PATIENT VERBALIZE "I HAVE PAIN". INFORM PATIENT BS 158 GIVE 3 UNITS HUMULIN R SQ. WILL MEDICATE FOR PAIN. MICHEL FROM [facility] HERE TO EVAL PATIENT AND WILL DICUSS WITH SON MORGAN RE NGT FEEDING.
--- NOTE | 2017-09-15 17:31 | NUR ---
MEDICATE PATIENT FOR PAIN WITH NORCO 1 TAB VIA NGT; BACK PAIN 08/25. FAMILY MEMBERS ARRIVE SEEING PATIENT AWAKEN AND TALKING. MICHEL (HOSPICE NURSE) MEET WITH MORGAN (SON) AND 3 OTHERS FAMILY MEMBERS IN PRIVATE ROOM.
--- NOTE | 2017-09-15 17:55 | NUR ---
PER ULTRASONOGRAPHER NIC PATIENT PULL OUT NGT WHEN SHE TURN AROUND TO ASSIST ANOTHER PATIENT. NOTED BILAT SOFT RESTRAINT IN PLACE; REPOSITION UP IN BED. DR. SANTOS WAS INFORM PATIENT PULL OUT NGT. WILL WAIT UNTIL FOR FAMILY MEMBERS TO MAKE DECISION AND UPDATE DR. SANTOS FOR ORDERS.
--- NOTE | 2017-09-15 18:39 | NUR ---
PER FAATIMA ST RECOMMEND PUREE WITH NECTAR THICK; PATIENT'S SON MORGAN AGREE WITH ST PLAN. WILL INFORM DR. SANTOS.
--- NOTE | 2017-09-15 20:00 | NUR ---
PATIENT RECEIVED SLEEPING AWAKEN WHEN NAME CALLED , BRIEFLY OPENS EYES, ATTEMPTING TO VRBALIZED WRODS THAT ARE INCOMPREHENSIBLE.RT SIDE WEAKNESS 2/2 HX: CVA. NO RESP. DISTRESS, BREATHING EVEN AND UNLABORED,FOUND ON ROOM AIR SAT 98%. DENIES CHEST PAINS, HR=58BPM, TELE#17 SB.RT IJ TRIPLE LUMEN CENTRAL LINE CATHETR INTACT, 2 UN USED PORTS CLAMPED,SITE CLEAR. PATIENT FOUND ON HER RT SIDE WITH HOB ELEVATED. NO S/S OF PAIN. BILAT SOFT WRIST RESTRAINTS MAINTAINED, CHECKED CIRC,. SCD'S TO BLE IN USE. FAMILY AT BEDSIDE AND INFORMED ABOUT POC THIS SHIFT. SAFTY/FALL PREC MAINTAINED. WILL CONTINUE TO MONITOR.
--- NOTE | 2017-09-15 20:08 | NUR ---
MANAGER BUSINESS PROCESS NOTE 19:05-20:05 Bedside swallow and oral motor examination complete following clearance from NAYELI Colin. Please refer to MANAGER BUSINESS PROCESS report for full details. MANAGER BUSINESS PROCESS educated RN Dixie re: recommendations and safe swallow precautions. Recommend: -Puree texture and nectar thick liquids (per family request 2/2 aspiration concerns, pt was originally cleared for regular texture/thin liquids by MANAGER BUSINESS PROCESS) -1:1 feeding assistance -FEED ONLY WHEN AWAKE/ALERT, STOP WHEN DECREASED LOC NOTED -Small bites/sips -Slow rate -Straw ok, pinch straw to control flow Nursing to continue to follow, ST f/u not indicated. G8996: CI G8997: CI G8998: CI Swallow NOMS 4
[2017-09-15 20:11] VITALS: BP 136/49
--- NOTE | 2017-09-15 21:59 | NUR ---
SCHEDULED MEDS ADMINISTERED, ORALLY, AWAKEN TO TAKE MEDS. NO DIFF SWALLOWING NITED, CRUSHED MEDS AND MIXED WITH APPLE SAUCE, HOB ELEVATED.
--- NOTE | 2017-09-15 23:17 | NUR ---
DR ROBERTO INFORMED ABOUT ST DIET RECOMMENDATION.
--- NOTE | 2017-09-16 | NUR ---
ROUNDS MADE PATIENT RESTING AND CALM WITH EYES CLOSED, AWAKEN WHEN NAME CALLED VERBALIZED WORDS , SPEECH GARBLED. TURNED AND REPOSITIONED. HAD A SMALL BROWNISH LIQUID STOOL, CLEANED AND KEPT DRY. RESTRAINT MAINTAINED TO PREVENT PATIENT FROM PULLING LINES. SAFETY/FALL PRECAUTION MAINTAINED. WILL CONTINUE TO MONITOR.
--- NOTE | 2017-09-16 02:00 | NUR ---
TURNED AND REPOSITIONED, NO DISTRESS. WILL CONTINUE TO MONITOR.
--- NOTE | 2017-09-16 04:00 | NUR ---
PATIENT RESTING COMFORTABLY, NO DISTRESS NOR S/S PAIN. REPOSITIONED THIS TIME, KEPT HOB ELEVATED. GBIALT SOFT WRIST RESTRAINT MAINTAINED CIRC CHECKED. SAFETY/FALL PRECAUTIONS MAINTAINED. WILL CONTINUE TO MONITOR.
--- NOTE | 2017-09-16 05:19 | NUR ---
DR ROBERTO AT STATION INFORMED THAT SCHEDULED MED WAS CRUSHED AND MIXED WITH APPLE SAUCE TO GIVE TO PATIENT ORALLY AND PATIENT WITH NO DIET ORDER YET.
[2017-09-16 06:27] VITALS: BP 134/53
--- NOTE | 2017-09-16 06:28 | NUR ---
PATIENT HAD A RESTFUL AND COMFORTABLE NIGHT, WAS TURNED AND REPOSITIONED ,KEPT HOB ELEVATED. SR-SB ON THE MONITOR. RT IJ TRIPLE LUMEN CATH INTACT, ALL PORTS PATENT. DRESSING CDI.BILAT SOFT WIRST RESTRAINT MAINTAINED TO PREVENT PATIENT FROM PULLING LINES, CIRC CHECKED. ABLE TO TAKE CRUSHED MED MIXED WITH APPLE SAUCE WITHOUT COUGHING EPISODE AFTER ADMINISTRATION. SAFETY/FALL PRECAUTIONS MAINTAINED. WILL ENDORSE CONTINUITY OF CARE TO INCOMING NURSE.
[2017-09-16 06:30] LABS: BASOPHIL % 0.4 % (0-2); PLATELET COUNT 132 x10^3mcL (130-400); RED CELL DISTRIBUTION WIDTH 13.4 % (11.5-14.5)
[2017-09-16 06:58] LABS: CALCIUM 7.8 mg/dL (8.5-10.1); CARBON DIOXIDE 36.1 mmol/L (21-32); CHLORIDE SERUM 105 mmol/L (98-107); CREATININE SERUM 0.5 mg/dL (0.6-1.0); GLUCOSE SERUM 178 mg/dL (74-106); PHOSPHOROUS 2.1 mg/dL (2.5-4.9); POTASSIUM SERUM 3.3 mmol/L (3.5-5.1); SODIUM SERUM 143 mmol/L (136-145)
--- NOTE | 2017-09-16 07:20 | NUR ---
BEDSIDE REPORT AND INTRODUCTION PERFORMED WITH INCOMING NURSE ANNIE ALANIZ.
--- NOTE | 2017-09-16 07:52 | NUR ---
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place] AND POSSIBLE PLAN FOR DISCHARGE BACK TODAY.
[2017-09-16 08:30] VITALS: BP 157/52
--- NOTE | 2017-09-16 09:09 | NUR ---
SEN BY DR PEPE AND STAFF WELL DR JADEN VELA. PLAN OF CARE IS FOR DISCHARGE HOME WITH HOSPICE TO [place]. PATIENT WAS ABLE TO TALK TO DR JADEN VELA AND SHE DOES NOT APPEAR TO BE IN ANY ACUTE DISTRESS AT THIS TIME.
[2017-09-16 10:11] VITALS: BP 111/56
--- NOTE | 2017-09-16 12:07 | NUR ---
PATIENT BLOOD SUGAR AT THIS TIME AT 310 AND 12 UNITS OF INSULIN GIVEN. PATIENT IS BEING SEEN BY THE HOSPICE NURSE AND PLAN FOR DISCHARGE BETWEEN 3 AN 4 TODAY. PATIENT IS CALM AND NO ISIGSN FO DISTRESS AT THIST JATINDER CONTINED ON RESTRAINT PROTOCAL ORDERED.
--- NOTE | 2017-09-16 12:19 | NUR ---
CHART REVIEWED NOTICE OF LOW ADRIANA SCORE INFORMED TO PRIMARY RN. PRIMARY RN VERBAL REPORT OF PT HAS NO SKIN PROBLEM, SKIN INTACT ALL PRESSURE INJURY PREVENTION INTERVENTIONS IN PLACE AND PT GOING TO DISCHARGE WITH [facility] TODAY. MET WITH HOSPICE NURSE MICHEL AT NURSING STATION AND INFORM OF LOW DARIANA SCORE, PER MICHEL THAT HOSPICE WILL FOLLOW ALL INTERVENTIONS.
[2017-09-16 13:40] VITALS: BP 116/74
--- NOTE | 2017-09-16 14:04 | NUR ---
EMPTIED 2400 FORM THE JONES OF LEGHT WEN URINE. PATIENT GIVFEN HER VERAPRIMIL ORDERED IN Vehcon[employer]USE. CENTRAL LINE AND JONES TO BE REMOVED PRIOR TO DISCHARGE. PATIENT IS CAM AND CONTINUE DON RESTRAINTS PER PROTOCAL AND THESE TOO WILL BE DISCONTINUED PRIOR TO TRANSFER WITH HOSPICE TO [place].
--- NOTE | 2017-09-16 14:14 | NUR ---
CENTRAL LINE AT LT SIDE OF NECK D/C PER DR ORDER. CATHETER TIP INTACT. NO BLEEDING AT THE SITE. PATIENT DENIES DISCOMFORT. ATTENDING NURSE ANNIE JONES.
[2017-09-16 14:34] VITALS: BP 116/74
--- NOTE | 2017-09-16 15:18 | NUR ---
FAMILY AT BEDSIDE AND ATTENTIVE WITH CARE. PATIENT FOR TRANSFER BACK TO THE [place] TODAY. PATIENT IS IN NO ACUTE DISTRESS AND WILL CONTINUE UNDER HOSPITAL CARE AT THE FACILITY.
--- NOTE | 2017-09-16 15:52 | NUR ---
PATIENT IV AND TELE REMOVED AND JONES REMOVED PIROR TO DISCHAREG TO THE SNF. FAMILY SIGNED FOR THE PATIENT AND PACK AND FOLDER FROM HOSPICE WAS SEMT ALONG WITH THE PATIETN INDICATED. PATIENT WAS IN NO PAIN OR DESTRESS AT TIME OF TRANFER. SHE IS RETURNING TO [facility] UNDER HOSPICE CARE.
== END 2017-09-16 15:45 | disposition hospice, home (50) | DRG 637 ==
LOC: ED 10:24 → IC 13:03 → DU 13:03 → IC 14:47 → DU 09-14 15:28
PROVIDERS: Family Medicine; Specialist; ADMIT Family Medicine
PROC: 05HM33Z Insertion of Infusion Device into Right Internal Jugular Vein, Percutaneous Approach (ICD-10-PCS; principal; 2017-09-13)
DX: E13.10 Other specified diabetes mellitus with ketoacidosis without coma (principal); G93.41 Metabolic encephalopathy; N17.0 Acute kidney failure with tubular necrosis; I50.43 Acute on chronic combined systolic (congestive) and diastolic (congestive) heart failure; I13.0 Hypertensive heart and chronic kidney disease with heart failure and stage 1 through stage 4 chronic kidney disease, or unspecified chronic kidney disease; I42.0 Dilated cardiomyopathy; N39.0 Urinary tract infection, site not specified; E44.0 Moderate protein-calorie malnutrition; I69.291 Dysphagia following other nontraumatic intracranial hemorrhage; R13.10 Dysphagia, unspecified; F02.80 Dementia in other diseases classified elsewhere, unspecified severity, without behavioral disturbance, psychotic disturbance, mood disturbance, and anxiety; G30.9 Alzheimer's disease, unspecified; E11.51 Type 2 diabetes mellitus with diabetic peripheral angiopathy without gangrene; N18.3 Chronic kidney disease, stage 3 (moderate); E11.22 Type 2 diabetes mellitus with diabetic chronic kidney disease; E78.5 Hyperlipidemia, unspecified; Z68.20 Body mass index [BMI] 20.0-20.9, adult; Z90.01 Acquired absence of eye; Z99.3 Dependence on wheelchair; Z79.84 Long term (current) use of oral hypoglycemic drugs; Z66 Do not resuscitate
CPT/HCPCS: 36556; 36600; 82962; 83880; 84439; 87804; 92610; G0480; J0696; J1170; J1450; J1642; J1815; J3480; J3490; J7030; J7042; Q0092